=== PATIENT | female | born 1960 | race Caucasian/White ===

== ENCOUNTER → 2016-08-22 | Outpatient (CLI) | payer OTHER ==
--- NOTE | 2016-08-22 10:17 | XR ---
EXAMINATION TYPE: XR cervical spine limited DATE OF EXAM: 08/22/2016 10:08 AM TECHNIQUE: Flexion-extension lateral views of cervical spine are acquired. HISTORY: Cervical procedure 6 months ago progress study. Cervical spondylosis per order COMPARISON: Cervical spine limited views February 22, 2016 FINDINGS: Cervical spine is seen from C1 through mid to inferior C7 vertebral body level. There is in terval placement of metallic disc material C4-C5 and C5-C6 levels. There is interval placement of a f usion disc C6-C7 level. Dynamic views show acceptable flexion and extension with satisfactory alignme nt present. Some narrowing anteriorly on flexion views at C4-C5 and C5-C6 levels is noted but may be expected due to flexion. Prevertebral soft tissue appears within normal limits. IMPRESSION: As above, no suspicious focal subluxation identified. Satisfactory alignment noted.
== END | disposition home or self-care (01) ==
LOC: RADXRMAIN 09:54
PROVIDERS: ATTEND Neurological Surgery
DX: M47.812 Spondylosis without myelopathy or radiculopathy, cervical region (principal)
CPT/HCPCS: 72040

== ENCOUNTER → 2017-01-08 | Outpatient (CLI) | payer OTHER ==
--- NOTE | 2017-01-11 10:47 | CONS ---
Reason for evaluation is sleep apnea. Katey is a 56-year-old with previous history of prescription medication abuse, currently on Suboxone along with previous history of chronic pain involving the neck, status post cervical discectomy and fusion who is [facility] due to concern of obstructive sleep apnea. The patient reported loud snoring, stops breathing during the night and this has been confirmed by her son who is coming with her today to the office. She also complained of excessive fatigue and sleepiness, nocturia, nocturnal gasping for air, along with chronic daytime fatigue and sleepiness. She goes to be between 7 to 8 p.m., wakes up at 6 a.m. in the morning and she averages around 7 hours of sleep. She falls asleep immediately without any major difficulties. She has gained around 20 pounds over the past few years and this is of a significant concern for her. No sleep paralysis, no hallucinations, no cataplexy. Family history is negative of sleep apnea. The patient is a smoker. No history of alcohol abuse. Past medical history is: 1. Chronic pain. 2. History of cervical pain with status post discectomy and fusion of the cervical spine. 3. Congenital hydronephrosis with a previous nephrectomy. 4. Nephrolithiasis. 5. History of prescription narcotic abuse. Past surgical history includes neck surgery involving the cervical spine, laminectomy, discectomy and fusion, cholecystectomy, hysterectomy, nephrectomy, c. section, knee surgery, appendectomy. ALLERGIES: None. Outpatient medications include Suboxone and Flexeril. SOCIAL HISTORY: Smoking 1/2 pack of cigarettes. No history of alcohol, no history of IV drugs. REVIEW OF SYSTEMS: No review of systems was done and the positive findings were all mentioned above in the history of present illness. BP is 141/100, pulse is 104, respirations 16, temperature 98.2, saturation 98% on room air. Weight is 185, height is 5, 6 and BMI is 29.8. Neck size is 14-1/4. General appearance is calm, comfortable. HEENT: Bilateral tonsillar enlargement and Mallampati class 3. No goiter or neck mass. LUNGS: Clear to auscultation. Heart sounds are regular rate and rhythm, normal S1, S2. No murmur. Abdomen is soft, nontender, no organomegaly. EXTREMITIES: No edema, cyanosis or clubbing. IMPRESSION: 1. Obstructive sleep apnea, clinically suspected, currently under investigation. 2. Tonsillar enlargement, bilateral with a Mallampati class 3 to 4. 3. Chronic pain. 4. History of prescription narcotic abuse, currently on Suboxone. 5. Hypersomnia with an Mangum Score of 12. 6. History of nephrectomy for congenital hydronephrosis. 7. Nephrolithiasis. PLAN: 1. Proceed with screening polysomnogram to evaluate this patient for obstructive sleep apnea. 2. Encourage weight loss. 3. Implement sleep hygiene measures. 5. Will continue to follow. REMEDIOS
== END | disposition home or self-care (01) ==
LOC: SLEEP 16:35
PROVIDERS: ATTEND Internal Medicine Critical Care Medicine
DX: G47.10 Hypersomnia, unspecified (principal); N20.0 Calculus of kidney; J35.1 Hypertrophy of tonsils; F17.210 Nicotine dependence, cigarettes, uncomplicated; Z79.899 Other long term (current) drug therapy; Z90.5 Acquired absence of kidney
CPT/HCPCS: 99211

== ENCOUNTER 2020-03-09 10:12 | Day surgery (SDC) | payer OTHER ==
--- NOTE | 2020-03-08 12:42 | P.GSHP ---
History of Present Illness H&P Date: 03/06/20 Chief Complaint: Right flank pain Patient is a 59-year-old white female with a history of kidney stones. 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 She has recently developed acute onset of right flank pain, associated with chills. Computed tomography scan shows evidence of right UPJ obstruction, with 2 calculi within the right renal pelvis measuring 5 and 8 mm in size. She was initially advised to undergo a right pyeloplasty with removal of the calculi, but she sustained a right lower extremity DVT in October 2019 for which she is taking Lovenox. It was thus decided to perform ureteroscopic removal of the calculi, and she will subsequently undergo a robotic-assisted laparoscopic right dismembered pyeloplasty after the Lovenox can be discontinued. 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 HAS HAD LEFT KIDNEY REMOVED History of Any Multi-Drug Resistant Organisms: None Reported Past Surgical History: Appendectomy, Section, Cholecystectomy, Hysterectomy, Orthopedic Surgery Additional Past Surgical History / Comment(s): LEFT nephrectomy, RT KNEE BENIGN BONE TUMOR REMOVED Past Anesthesia/Blood Transfusion Reactions: No Reported Reaction Past Psychological History: No Psychological Hx Reported Past Alcohol Use History: None Reported Past Drug Use History: None Reported - Past Family History Father Family Medical History: Cancer Additional Family Medical History / Comment(s): JAW Medications and Allergies Home Medications Medication Instructions Recorded Confirmed Type Metoprolol Tartrate 50 mg PO QAM 06/01/15 07/31/15 History Ciprofloxacin HCl [Cipro] 500 mg PO Q12HR #20 tablet 07/31/15 Rx HYDROcodone/APAP 10-325MG [Campbell 1 tab PO Q6H PRN 07/31/15 07/31/15 History 10-325] Hydrocodone/Acetaminophen [Campbell 1 each PO Q4HR PRN #20 tablet 07/31/15 Rx 10-325 Tablet] Allergies Allergy/AdvReac Type Severity Reaction Status Date / Time No Known Allergies Allergy Verified 07/31/15 18:18 Surgical - Exam - General well developed, well nourished, no distress - Neck no masses, trachea midline - Respiratory normal respiratory effort, clear to auscultation - Cardiovascular Rhythm: regular Abnormal Heart Sounds: no systolic murmur, no diastolic murmur, no rub, no S3 Gallop, no S4 Gallop, no click, no other - Abdomen Abdomen: soft, non tender, no guarding, no rigid, no rebound - Psychiatric oriented to time, oriented to person, oriented to place, speech is normal, memory intact Assessment and Plan (1) Calculus of kidney Status: Acute Code(s): N20.0 - CALCULUS OF KIDNEY SNOMED Code(s): 81072243 (2) Congenital occlusion of ureteropelvic junction Status: Acute Code(s): Q62.11 - CONGENITAL OCCLUSION OF URETEROPELVIC JUNCTION SNOMED Code(s): 481998544 Plan: Cystoscopy, right ureteroscopy with Holmium laser lithotripsy and possible stone basketing, right ureteral stent insertion. The procedure has been reviewed in detail with the patient. She is aware of potential risks, which include anesthesia, bleeding, infection, and ureteral injury. If the right ureteropelvic junction appears stenotic, balloon dilation may be required.
[2020-03-08 13:46] VITALS: BMI 30.9
[~2020-03-09 10:12] MED LIST: DEXAMETHASONE SOD PHOSPHATE 10 MG/ML 1 ML VIAL IV ONE; LACTATED RINGERS 1,000 ML IV SCH; LIDOCAINE 1% (10MG/ML) FOR IV START INTRADERMA PRN; ONDANSETRON 4 MG/2 ML VIAL IVP ONE
--- NOTE | 2020-03-09 10:31 | XR ---
EXAMINATION TYPE: XR KUB DATE OF EXAM: 03/09/2020 HISTORY: Pain Comparison: None.Single KUB is submitted for interpretation. Findings: Right renal calculi: 4 calculi are noted to overlie the right kidney measuring up to 1.3 cm. Right ureteral calculi: Linear calculus is noted at the right L4-5 level which may reflect ureteral c alculus unchanged in position since prior study. Additional calculus overlies the right mid sacrum me asuring 3.8 mm. Left renal calculi: Previously noted left renal calculi is not redemonstrated at this time. Left ureteral calculi: None Visualized. Pelvic calcifications: Multiple pelvic calcifications noted which may in part reflect phlebolith for mation versus distal ureteral calculi. Bowel gas pattern is unremarkable. No free air. No mass effects. IMPRESSION: 1. Calculi as noted above.
[2020-03-09] MEDS ORDERED: ONDANSETRON 4 MG/2 ML VIAL ONE (12:03)
[2020-03-09] MEDS ORDERED: MIDAZOLAM 2 MG/2 ML VIAL ONE (13:10)
[2020-03-09] MEDS ORDERED: PROPOFOL 10 MG/ML 20 ML VIAL IV ONE (13:10)
[2020-03-09] MEDS ORDERED: fentaNYL (PF) 50 MCG/ML 2 ML AMP ONE (13:10)
[2020-03-09] MEDS ORDERED: LIDOCAINE 1% INJ 10MG/ML (20 ML MDV) ONE (13:10)
[2020-03-09] MEDS ORDERED: IOPAMIDOL-370 50ML BTL MISCELLANE ONE (13:14)
[2020-03-09] MEDS ORDERED: LACTATED RINGERS 1,000 ML IV ONE (15:29)
[2020-03-09 15:49] VITALS: TEMP 98.1
--- NOTE | 2020-03-09 15:59 | FL ---
EXAMINATION TYPE: FL urography retrograde DATE OF EXAM: 03/09/2020 COMPARISON: NONE HISTORY: R kidney stone TECHNIQUE: Fluoroscopy. FINDINGS: R side stone, 38sec fl time IMPRESSION: As Above.
[2020-03-09] MEDS: HYDROmorphone 0.5 MG/0.5 ML SYRINGE IVP PRN ×2 (16:03→16:07)
[2020-03-09] MEDS ORDERED: KETOROLAC 15 MG/ML 1 ML VIAL IVP ONE (16:03)
[2020-03-09] MEDS ORDERED: ACETAMINOPHEN IV (For NPO) 1,000 MG/100 ML VIAL IVPB ONE (16:14)
[2020-03-09 16:45] VITALS: RESP 16
[2020-03-09 16:54] VITALS: BP 124/84; PULSE 79
--- NOTE | 2020-03-16 10:26 | P.OP ---
Date of Procedure: 03/09/20 Preoperative Diagnosis: Right renal calculi, right UPJ obstruction Postoperative Diagnosis: Same Procedure(s) Performed: Cystoscopy, right retrograde pyelogram, right ureteroscopy with Holmium laser lithotripsy and stone basketing, right ureteral stent insertion Anesthesia: WINDYA Surgeon: Blaze Gonzales Estimated Blood Loss (ml): 10 IV fluids (ml): 1,000 Pathology: other (Stone fragments, sent for chemical analysis.) Condition: stable Disposition: PACU Indications for Procedure: Patient is a 59-year-old white female with a history of kidney stones. 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 She has recently developed acute onset of right flank pain, associated with chills. Computed tomography scan shows evidence of right UPJ obstruction, with 2 calculi within the right renal pelvis measuring 5 and 8 mm in size. She was initially advised to undergo a right pyeloplasty with removal of the calculi, but she sustained a right lower extremity DVT in October 2019 for which she is taking Lovenox. It was thus decided to perform ureteroscopic removal of the calculi, and she will subsequently undergo a robotic-assisted laparoscopic right dismembered pyeloplasty after the Lovenox can be discontinued. Operative Findings: 1) Right UPJ obstruction. 2) 2 right renal pelvic calculi. Description of Procedure: The patient was taken to the operating room and placed in the dorsolithotomy position, with legs supported in Hugo stirrups. The external genitalia was prepped and draped sterilely. The 30 lens was used to introduce the 21-Azerbaijani Joiner cystoscopic sheath through the urethra and into the bladder under direct vision. The bladder was examined in its entirety. Both ureteral orifices were normal anatomic location and configuration, and clear urine effluxed from both. No tumors or foreign bodies were seen. Using a cone-tipped catheter, a right retrograde pyelogram was performed. The course of the ureter was seen on fluoroscopy. High insertion of the ureter into a dilated renal pelvis was seen, consistent with UPJ obstruction. A 0.038 inch Glidewire was passed through the cystoscope. The right ureteral orifice was cannulated, and the Glidewire was advanced up to the right renal pelvis. An 11/13-Azerbaijani ureteral access catheter was passed over the wire, up to the proximal ureter. The mini flexible ureteroscope was passed through the ureteral access catheter sheath, and advanced under direct vision into the right renal pelvis. 2 calculi were seen within the right renal pelvis. The 272 micron Holmium laser probe was passed through the ureteroscope, and lithotripsy was performed. Initially, a dusting technique was utilized, but the calculi were extremely dense and ultimately fragmenting mode was utilized. A 1.9-Azerbaijani nitinol basket was used to remove some of the calculus fragments. The remaining fragments were treated using a popcorning directly, leaving no residual calculus fragments exceeding 1-2 mm in size. The ureteroscope was slowly withdrawn. There is no evidence of ureteral trauma. The Glidewire was passed through the ureteroscope and up to the right renal pelvis. After removing the ureteroscope, and the Glidewire was backloaded into the cystoscope, which was passed into the bladder. A double-J ureteral stent was placed over the wire. Proper stent positioning was verified fluoroscopically and endoscopically. The bladder was emptied and the cystoscope removed. The patient tolerated the procedure well and was taken to the recovery room in stable condition.
== END 2020-03-09 17:12 | disposition home or self-care (01) ==
LOC: OR 10:12
PROVIDERS: ATTEND Urology
DX: N20.0 Calculus of kidney (principal); Q62.11 Congenital occlusion of ureteropelvic junction; F17.210 Nicotine dependence, cigarettes, uncomplicated; Z87.442 Personal history of urinary calculi; Z86.718 Personal history of other venous thrombosis and embolism; Z79.01 Long term (current) use of anticoagulants; Z90.5 Acquired absence of kidney; Z86.018 Personal history of other benign neoplasm; Z90.49 Acquired absence of other specified parts of digestive tract; Z98.890 Other specified postprocedural states; Z90.710 Acquired absence of both cervix and uterus; Z79.899 Other long term (current) drug therapy; Z98.1 Arthrodesis status; Z80.8 Family history of malignant neoplasm of other organs or systems
CPT/HCPCS: 93005; 82365; 74420; 74018; 52356; C2625; C1758; C1769; J2250; J1100; J0690; J2405; J2001; J3010; J0131; J1885; J2704; J1170; Q9967

== ENCOUNTER → 2020-07-25 | Outpatient (CLI) | payer OTHER ==
[~2020-07-25] MED LIST changes: -DEXAMETHASONE SOD PHOSPHATE 10 MG/ML 1 ML VIAL IV ONE; +FUROSEMIDE 10 MG/ML 2 ML VIAL IV ONE; -LACTATED RINGERS 1,000 ML IV SCH; -LIDOCAINE 1% (10MG/ML) FOR IV START INTRADERMA PRN; -ONDANSETRON 4 MG/2 ML VIAL IVP ONE
--- NOTE | 2020-07-25 15:05 | NM ---
EXAMINATION TYPE: NM lasix renogram DATE OF EXAM: 07/25/2020 COMPARISON: MRI lumbar spine October 18, 2015. KUB x-ray March 09, 2020 HISTORY: UPJ obstruction per order. History of left nephrectomy 49 years ago with right-sided renal c alculi and flank pain, history of right ureter stent placement and removal. Following administration of 10.3 mCi Tc 99m MAG3 with 20mg Lasix. Immediate images post injection FINDINGS: Max renal flow right: 96 minutes. Satisfactory accumulation of radiotracer within right sided renal collecting system. After the admini stration of Lasix, there is prompt excretion from both collecting systems. T 1/2 right: 25.4 minutes minutes. Dynamic arterial images show satisfactory blood flow and cortical medullary uptake in the right kidne y. Satisfactory excretion is identified. Prominence of right renal pelvis is seen but there is normal excretion into the ureter. There is increased excretion on Lasix injection. IMPRESSION: Satisfactory cord especially uptake and excretion in the single right kidney. Prominent r ight renal pelvis with response to Lasix consistent with dilatation or extrarenal pelvis. No obstruct ion currently.
== END | disposition home or self-care (01) ==
LOC: RADNMMAIN 12:48
PROVIDERS: ATTEND Urology
DX: N13.0 Hydronephrosis with ureteropelvic junction obstruction (principal)
CPT/HCPCS: 78708; A9562